=== PATIENT | male | born 1985 | race Caucasian/White ===

== ENCOUNTER 2017-03-11 18:41 | Emergency (ER) | payer SELFPAY ==
[~2017-03-11] VITALS: Ht 185.4 cm; Wt 91.0 kg
[2017-03-11] MEDS ORDERED: IBUP-1636 PO (18:48)
[2017-03-11] MEDS ORDERED: ACETAMINOPHEN 500MG TABLET ONE (18:58)
[2017-03-12] MEDS ORDERED: DIPHENHYDRAMINE 50MG CAPSULE PO ONE (02:45)
[2017-03-12] MEDS ORDERED: SODIUM CHLORIDE 0.9% 1,000 ML IV ONE (03:41)
[2017-03-12] MEDS ORDERED: LIDOCAINE HCL 1% 20ML VIAL (Pyxis) INJ MC ONE (03:45)
[2017-03-12] MEDS ORDERED: TETANUS, DIPHTHERIA, PERTUSSIS VAC/PF 0.5ML (>7YR OLD) IM ONE (03:45)
[2017-03-12] MEDS ORDERED: KETOROLAC 30MG/ML VIAL IV ONE (03:45)
[2017-03-12] MEDS ORDERED: LORAZEPAM 2MG/ML CPJ IV ONE (03:45)
[2017-03-12] MEDS ORDERED: BACITRACIN ZINC OINT UDPKT TOP ONE (03:45)
[2017-03-12] MEDS ORDERED: ONDANSETRON HCL 4MG/2ML VIAL IV ONE (03:45)
[2017-03-12] MEDS ORDERED: VANCOMYCIN 1 G PREMIX 200 ML IV SCH (04:00)
[2017-03-12 04:26] VITALS: BP 127/72
== END 2017-03-12 06:31 | disposition home or self-care (01) ==
LOC: ER 18:41
DX: L02.511 Cutaneous abscess of right hand (principal); F17.200 Nicotine dependence, unspecified, uncomplicated; F11.10 Opioid abuse, uncomplicated; F15.10 Other stimulant abuse, uncomplicated; R19.7 Diarrhea, unspecified; R11.10 Vomiting, unspecified
CPT/HCPCS: 10060; 73060; 73090; 90471; 90715; 96365; 96366; 96375; 99285; J1885; J2060; J2405; J3370; J3490; J7030; Z7610; A4565; Q0163